=== PATIENT | female | born 1945 | race Caucasian/White ===

== ENCOUNTER → 2022-05-20 14:02 | Outpatient (BNVA) | payer MEDICARE, SELFPAY | PROVIDERS: PCP Internal Medicine; Visit Provider Internal Medicine | DX: R76.8 Other specified abnormal immunological findings in serum (principal) | CPT/HCPCS: 99202 ==

== ENCOUNTER 2024-09-07 13:15 | Emergency (ER) | payer MEDICARE, SELFPAY ==
[2024-09-07] VITALS (9 sets, daily range): BP systolic 169–224; BP diastolic 24–92; PULSE 61–79; RESP 14–16; TEMP 36.4–37.1; O2SAT 94–98; BMI 28.3
--- NOTE | ~2024-09-07 | CT_ITS ---
EXAMINATION: CT CHEST WITHOUT CONTRAST CLINICAL INFORMATION: Assess for possible aneurysm COMPARISON: Same-day radiograph TECHNIQUE: Multidetector volumetric CT imaging of the chest was done. Axial MIP volume rendering provided. Sagittal and coronal reformatted images were obtained. This CT examination was performed using dose optimization techniques as appropriate, variously including the following: *Automated exposure control *Adjustment of mA and/or kV according to patient size (this includes techniques or standardized protocols for targeted exams where dose is matched to indication/reason for exam; i.e. extremities or head) *Use of iterative reconstruction technique DLP: 185 mGy-cm FINDINGS: HYDROGEOLOGIST: Similar LUNGS: Minor subcutaneous pleural scarring both apices posteriorly especially. 4 mm area of increased density is not mass like left upper lobe. Please see posadas images. When compared to patient's older CT scan dated 02/01/2020, this appears similar. Other cysts small nodular foci favoring scarring similar. No new findings grossly. MEDIASTINUM: The ascending thoracic aorta measures up to 4.1 cm. Generalized atherosclerosis. And correlated to patient's baseline study, this is progressive. CORONARY ARTERY CALCIFICATION: Present PLEURA: There is no pleural effusion. No pleural mass or thickening. AXILLA: No lymphadenopathy. UPPER ABDOMEN: Parapelvic cysts suspected left kidney partially imaged. OSSEOUS STRUCTURES: Unremarkable. CT/CT chest wo IV con IMPRESSION: 4.1 cm descending thoracic aortic aneurysm . Follow-up recommended. Stable pulmonary findings favoring scarring. Fleischner guidelines were followed. Electronically signed by: Ambrosio Rodriguez MD 09/07/2024 07:00 PM [facility]
--- NOTE | ~2024-09-07 | CT_ITS ---
EXAMINATION: CT HEAD WITHOUT CONTRAST CLINICAL INFORMATION: JUAN, HTN COMPARISON: CT dated April 17, 2018. TECHNIQUE: Contiguous axial imaging was performed from the skull base to vertex without intravenous administration of contrast. This CT examination was performed using dose optimization techniques as appropriate, variously including the following: *Automated exposure control *Adjustment of mA and/or kV according to patient size (this includes techniques or standardized protocols for targeted exams where dose is matched to indication/reason for exam; i.e. extremities or head) *Use of iterative reconstruction technique DLP: 633 mGy-cm FINDINGS: Prominence of the extra-axial CSF spaces along the frontal parietal convexities suggesting volume loss. No acute intracranial hemorrhage, mass effect, midline shift, hydrocephalus or herniation. Old lacunar infarcts in the basal ganglia the most conspicuous in the left thalamus. Grade 1 matter differentiation is normal. Posterior cranial fossa contents demonstrated no acute hemorrhage or gross mass effect. Sellar/suprasellar region demonstrated no gross masses. Calcified plaques in the cavernous segments both ICA. Mucosal thickening, ethmoid air cells and maxillary sinuses without air-fluid levels. Tympanic cavities and mastoid air cells are aerated. High riding right internal jugular bulb. CT/CT head/brain wo IV con IMPRESSION: No acute intracranial hemorrhage. Small vessel occlusive disease. Electronically signed by: Thanh Baca MD 09/07/2024 03:36 PM EST
--- NOTE | ~2024-09-07 | XR_ITS ---
EXAMINATION: XR CHEST CLINICAL INFORMATION: sob COMPARISON: None available. TECHNIQUE: 2 views of the chest were obtained. FINDINGS: The cardiac, hilar, and mediastinal contours demonstrate the aorta is mildly uncoiled and calcified. Prominence of the aortic root. The lungs are somewhat hyperaerated, however clear bilaterally. Minor apical pleural thickening right greater than left. Minor thickening of the bronchi noted. There is no pneumothorax or pleural effusion. There is no focal osseous or soft tissue abnormality. S-shaped scoliosis of the thoracolumbar spine. XR/XR chest 2V IMPRESSION: 1. No consolidation or effusion. 2. Minor thickening of the airways suggesting bronchitis. 3. COPD, unchanged. 4. Prominence of the ascending aorta noted, cannot exclude aneurysm. Electronically signed by: Klaus Anderson MD 09/07/2024 02:50 PM [facility]
--- NOTE | 2024-09-07 13:26 | ED_ITS ---
HPI - General Adult General Chief complaint: General Medical Stated complaint: Pt new med pos allergic reaction per ems Time Seen by Provider: 09/07/24 13:24 Source: patient, EMS, RN notes reviewed and old records reviewed Mode of arrival: EMS History of Present Illness ED Provider: Priscilla Marie PA-C HPI narrative: 79-year-old female with a past medical history of HLD, hypothyroid, HTN, migraines, ovarian and endometrial CA, presenting to the ED via EMS complaining of headache, chest tightness, SOB, body squeezing sensation and throat tightening 1 hour after taking Doxycycline. Admits saw PCP on Wednesday and was prescribed Doxycycline for sinusitis, states has taken Doxycycline in the past without adverse reaction. Denies other new exposures or medications. Denies fever, chills, cough, abdominal pain, nausea/vomiting. Related Data Home Medications ?Medication ?Instructions ?Recorded ?Confirmed levothyroxine 50 mcg capsule 50 mcg PO DAILY 05/20/22 loratadine 10 mg tablet 10 mg PO DAILY 05/20/22 metoprolol succinate 25 mg 12.5 mg PO DAILY 05/20/22 tablet,extended release 24 hr Previous Rx's ?Medication ?Instructions ?Recorded azithromycin 250 mg tablet See Rx Instructions PO .COMPLEX #6 09/07/24 tabs Allergies Allergy/AdvReac Type Severity Reaction Status Date / Time butalbital [From FIORICET] Allergy Intermediate UNKNOWN Verified 09/07/24 13:32 tetracaine [TETRACAINE] Allergy Intermediate UNKNOWN Verified 09/07/24 13:32 nortriptyline [NORTRIPTYLINE] Allergy Mild BURNING Verified 09/07/24 13:32 SENSATION atorvastatin Allergy Unknown Unknown Verified 09/07/24 13:32 bupivacaine Allergy Unknown Unknown Verified 09/07/24 13:32 cefazolin [CEFAZOLIN] Allergy Unknown HIVES Verified 09/07/24 13:32 ezetimibe [From ZETIA] Allergy Unknown HEADACHES Verified 09/07/24 13:32 hydralazine Allergy Unknown Unknown Verified 09/07/24 13:32 lidocaine [LIDOCAINE] Allergy Unknown RASH Verified 09/07/24 13:32 lisinopril [LISINOPRIL] Allergy Unknown ANGIOEDEMA Verified 09/07/24 13:32 mepivacaine [From CARBOCAINE] Allergy Unknown RASH AND Verified 09/07/24 13:32 BLEEDING UNDER THE SKIN Sulfa (Sulfonamide Allergy Unknown Unknown Verified 09/07/24 13:32 Antibiotics) sulfamethoxazole Allergy Unknown RASH Verified 09/07/24 13:32 [From BACTRIM] trimethoprim [From BACTRIM] Allergy Unknown RASH Verified 09/07/24 13:32 Cefzil Allergy Unknown Unknown Uncoded 05/20/22 14:10 Tetracaine Allergy Unknown Unknown Uncoded 05/20/22 14:10 Review of Systems 2 Review of Systems: Yes all other systems are reviewed and are negative Constitutional: Constitutional: Reports as per HPI Neurologic: Denies Abnormal speech present [facility] Past Medical History Attestation statement: The following information was validated with the patient. Source: old records reviewed Medical History Positive Lyme disease serology Hypercholesterolemia Hypothyroid Allergies Hypertension H/O ovarian cancer H/O malignant neoplasm of endometrium Migraine Surgical History H/O sinus surgery H/O vein stripping Social History Social History Smoked in Last 30 Days: No Use of substances other than those prescribed or required for medical reasons: No Advance Directives: No Advance Directives Information Provided: Yes Physical Exam ED Vital Signs: Vital Signs - 24 hr 09/07/24 13:29 09/07/24 13:37 09/07/24 15:28 Temperature 97.6 F Pulse Rate 78 73 69 Respiratory Rate 16 Blood Pressure 224/81 H 211/92 H 188/24 H Pulse Oximetry 97 98 94 Oxygen Delivery Method Room Air Room Air 09/07/24 15:29 09/07/24 15:29 09/07/24 15:30 Temperature Pulse Rate 63 66 65 Respiratory Rate Blood Pressure 178/78 H 182/76 H 183/76 H Pulse Oximetry 95 94 94 Oxygen Delivery Method Room Air Room Air Room Air 09/07/24 15:30 09/07/24 15:50 09/07/24 18:02 Temperature Pulse Rate 65 61 70 Respiratory Rate 14 16 Blood Pressure 188/74 H 169/69 H 180/73 H Pulse Oximetry 95 95 96 Oxygen Delivery Method Room Air Room Air Room Air 09/07/24 19:49 Temperature 98.7 F Pulse Rate 70 Respiratory Rate 16 Blood Pressure 180/73 H Pulse Oximetry 96 Oxygen Delivery Method Room Air BMI result Body Mass Index 28.3 Const General: cooperative, healthy appearing and no acute distress Orientation/consciousness: patient oriented x3 Limitations: no limitations HENMT Head: Yes normal to inspection and Yes atraumatic Ears: hearing grossly normal bilaterally General nose exam: Normal external nose present Face and sinus: Yes normal facial exam Mouth: Normal oral and palatal mucosa present and no drooling Throat: Yes posterior oropharynx normal, Yes uvula midline, No peritonsillar mass, No uvula laterally displaced and No uvular edema Eyes General: appearance normal, both eyes and all related structures Pupils: Equal, round and reactive pupils present EOM: EOMs intact bilaterally Neck Neck: Yes normal visual inspection and Yes no meningeal signs Resp Effort & Inspection: normal respiratory effort and no respiratory distress Auscultation: clear to auscultation bilaterally and no wheezes Cardio Rate: regular rate Heart sounds: S1 normal heart sound present and S2 normal heart sound present GI Inspection: Yes normal to inspection Palpation (GI): Soft to palpation, nontender, no guarding and not rigid General: Yes no CVA tenderness Back/Spine/Pelvis Back: no CVA tenderness Skin Rashes: no rashes Wounds: no wounds Neuro General: patient oriented x3, gait normal, tone normal, moves all extremities, no meningeal signs, no focal motor deficits and CN's II-XI intact bilaterally Cranial nerves: Yes CN's II-XII intact bilaterally, Yes Equal, round and reactive pupils present and Yes Bilaterally intact EOM present Cognition (Neuro): normal cognition Speech: No Abnormal speech present Motor exam (neuro): 5/5 motor strength present throughout and no tremor noted Extrem General: Yes normal to inspection Course Course Course Narrative: -1536--no leukocytosis. Labs otherwise reassuring. Initial troponin negative -viral studies negative XR chest 2V IMPRESSION: 1. No consolidation or effusion. 2. Minor thickening of the airways suggesting bronchitis. 3. COPD, unchanged. 4. Prominence of the ascending aorta noted, cannot exclude aneurysm. > will obtain chest CT for further eval >> patient allergic to contrast, refusing contrast & pre-treatment > will obtain CT dry -155-- blood pressure improving 169/69 after medications given in the ED CT head/brain wo IV con IMPRESSION: No acute intracranial hemorrhage. Small vessel occlusive disease. -190--CT chest wo IV con IMPRESSION: 4.1 cm descending thoracic aortic aneurysm. Follow-up recommended. Stable pulmonary findings favoring scarring. Fleischner guidelines were followed. -Results discussed with patient including recommended follow up with vascular & PCP -recommend patient stop taking previously prescribed doxycycline as possible adverse reaction from to the ED visit today > will switch to Azithromycin > Results discussed with patient including worrisome signs and symptoms and strict return precautions, and when to return to the emergency department. They verbalized understanding and feel safe for discharge at this time. Medications Administered Discontinued Medications Generic Name Dose Route Start Last Admin Trade Name Camelia PRN Reason Stop Dose Admin Acetaminophen 650 mg 09/07/24 13:42 09/07/24 13:57 Acetaminophen 325 Mg Tablet PO 09/07/24 13:43 650 mg ONCE ONE Administration Diphenhydramine HCl 25 mg 09/07/24 13:40 09/07/24 13:56 Diphenhydramine Hcl 50 Mg/Ml Vial IVPUSH 09/07/24 13:41 25 mg ONCE ONE Administration Labetalol HCl 5 mg 09/07/24 13:46 09/07/24 13:57 Labetalol Hcl 100 Mg/20 Ml Vial IVPUSH 09/07/24 13:47 5 mg ONCE ONE Administration Medical Decision Making Medical Decision Making [facility] Narrative: 79-year-old female with a past medical history of HLD, hypothyroid, HTN, migraines, ovarian and endometrial CA, presenting to the ED via EMS complaining of headache, chest tightness, SOB, body squeezing sensation and throat tightening 1 hour after taking Doxycycline. On exam hypertensive 224/81, NAD, nontoxic appearing, mildly anxious, lungs CTA, talking in complete sentences, no focal neuro deficits. Concern for medication adverse reaction vs allergic reaction vs anxiety vs ACS vs migraine headache vs hypertensive urgency/emergency vs ?ICH. Low suspicion for SAH, meningitis or encephalitis. Lower suspicion for dissection Plan: EKG, labs, CXR, head CT, IV Benadryl, Tylenol, labetalol, re-evaluate Please refer to course for remaining clinical decision making, interpretation of labs/imaging results, and discussions with consultants and/or family members. Differential Diagnosis Differential Diagnoses: The differential diagnosis associated with the presentation includes As above Admission/Observation Consideration of admission/observation: Escalation of care including admission/observation considered Lab Data [facility] Lab Attestation statement: I reviewed the patient's lab results. 09/07/24 13:42 09/07/24 13:42 Labs: Lab Results 09/07/24 09/07/24 09/07/24 Range/Units 13:42 13:43 13:53 WBC 7.3 (4.8-10.8) X10*3/uL RBC 4.70 (4.20-5.50) X10*6/uL Hgb 14.1 (12.0-16.0) g/dl Hct 42.1 (37.0-47.0) % MCV 89.6 (80.0-98.0) fL MCH 30.0 (27.0-33.0) pg MCHC 33.5 (31.0-35.0) g/dl RDW 12.5 (11.0-16.0) % Plt Count 232 (160-400) X10*3/uL MPV 8.8 L (9.4-12.3) fL Absolute Nucleated RBC 0.000 (0.0-0.012) X10*3/uL Nucleated RBC % (auto) 0.0 (0.0-0.2) /100WBC Neutrophils % (Manual) 61 (45-73) % Band Neutrophils % 0 L (3-5) % Lymphocytes % (Manual) 33 (20-40) % Monocytes % (Manual) 4 (2-11) % Eosinophils % (Manual) 1 (0-4) % Basophils % (Manual) 1 (0-2) % Abs Neuts (Manual) 4.5 (2.0-8.3) X10*3/uL Lymphocytes # (Manual) 2.4 (1.2-4.9) X10*3/uL Monocytes # (Manual) 0.3 (0.1-1.2) X10*3/uL Eosinophils # (Manual) 0.1 (0.0-0.4) X10*3/uL Basophils # (Manual) 0.1 (0.0-0.2) X10*3/uL Platelet Estimate NORMAL (NORMAL) Large Platelets PRESENT Plt Morphology Comment NOTED RBC Morphology NOTED Tear Drop Cells 1+ (0-2) /OIF Ovalocytes 1+ (5-14) /OIF PT 11.3 (10.9-12.4) SEC INR 1.0 (0.9-1.1) Sodium 138 (135-145) mmol/L Potassium 3.6 (3.3-5.1) mmol/L Chloride 105 (96-108) mmol/L Carbon Dioxide 26 (22-29) mmol/L Anion Gap 11 L (12-20) BUN 15 (9-16) mg/dL Creatinine 0.94 (0.5-1.4) mg/dL Estim Creat Clear Calc 45.2 Estimated GFR 58 Random Glucose 100 (60-115) mg/dL Calcium 9.2 (8.4-10.2) mg/dL Magnesium 1.8 (1.6-2.6) mg/dL Total Bilirubin 0.5 (0.0-1.0) mg/dL Direct Bilirubin 0.2 (0.0-0.5) mg/dL AST 30 (5-31) U/L ALT 24 (0-31) U/L Alkaline Phosphatase 63 (39-117) U/L Total Creatine Kinase 125 (26-140) U/L Troponin I High Sens < 2.7 (<3.5-17.0) ng/L Total Protein 7.1 (6.5-8.0) g/dL Albumin 4.2 (3.5-5.0) g/dL Influenza Type A (PCR) NEGATIVE (Negative) Influenza Type B (PCR) NEGATIVE (Negative) RSV RNA Qual (PCR) NEGATIVE (Negative) SARS-CoV-2 RNA (RT-PCR) NEGATIVE (Negative) 09/07/24 Range/Units 16:59 WBC (4.8-10.8) X10*3/uL RBC (4.20-5.50) X10*6/uL Hgb (12.0-16.0) g/dl Hct (37.0-47.0) % MCV (80.0-98.0) fL MCH (27.0-33.0) pg MCHC (31.0-35.0) g/dl RDW (11.0-16.0) % Plt Count (160-400) X10*3/uL MPV (9.4-12.3) fL Absolute Nucleated RBC (0.0-0.012) X10*3/uL Nucleated RBC % (auto) (0.0-0.2) /100WBC Neutrophils % (Manual) (45-73) % Band Neutrophils % (3-5) % Lymphocytes % (Manual) (20-40) % Monocytes % (Manual) (2-11) % Eosinophils % (Manual) (0-4) % Basophils % (Manual) (0-2) % Abs Neuts (Manual) (2.0-8.3) X10*3/uL Lymphocytes # (Manual) (1.2-4.9) X10*3/uL Monocytes # (Manual) (0.1-1.2) X10*3/uL Eosinophils # (Manual) (0.0-0.4) X10*3/uL Basophils # (Manual) (0.0-0.2) X10*3/uL Platelet Estimate (NORMAL) Large Platelets Plt Morphology Comment RBC Morphology Tear Drop Cells /OIF Ovalocytes /OIF PT (10.9-12.4) SEC INR (0.9-1.1) Sodium (135-145) mmol/L Potassium (3.3-5.1) mmol/L Chloride (96-108) mmol/L Carbon Dioxide (22-29) mmol/L Anion Gap (12-20) BUN (9-16) mg/dL Creatinine (0.5-1.4) mg/dL Estim Creat Clear Calc Estimated GFR Random Glucose (60-115) mg/dL Calcium (8.4-10.2) mg/dL Magnesium (1.6-2.6) mg/dL Total Bilirubin (0.0-1.0) mg/dL Direct Bilirubin (0.0-0.5) mg/dL AST (5-31) U/L ALT (0-31) U/L Alkaline Phosphatase (39-117) U/L Total Creatine Kinase (26-140) U/L Troponin I High Sens < 2.7 (<3.5-17.0) ng/L Total Protein (6.5-8.0) g/dL Albumin (3.5-5.0) g/dL Influenza Type A (PCR) (Negative) Influenza Type B (PCR) (Negative) RSV RNA Qual (PCR) (Negative) SARS-CoV-2 RNA (RT-PCR) (Negative) Independent Interpretation I performed an independent interpretation of an: EKG, Plain X-Ray and CT Scan Radiology Impression Discussion of test interpretation with radiology: I have reviewed the radiologist's reading. Independent Historian Clinical information obtained from an independent historian. History obtained from or confirmed by: EMS External Record Review External record reviewed: Inpatient record, Office record, Outpatient record, Prior outpatient labs, Prior outpatient radiology, Primary care record and Outside ED record Tests considered The following testing was considered but not selected: As above Prescription Management I considered prescription management with: Pain Medication and Antibiotic Chronic Conditions Patient?s care impacted by: Hypertension and Other Social Determinants Patient?s care significantly limited by Social Determinants of Health including: Other Social Determinant of Health Critical Care Time Critical Care Time Critical Care Time: Yes Total Critical Care Time: 40 Attestation: I have personally provided critical care time exclusive of time spent on separately billable procedures. Time includes review of lab data, radiology results, discussion with consultants, and monitoring for potential decompensation. Intervention performed as documented. Discharge Plan Discharge Clinical Impression: Adverse drug reaction, Chest pain, Aortic aneurysm, thoracic Patient Disposition: Home, Self-Care Instructions: Thoracic Aortic Aneurysm (ED), General Allergic Reaction (ED) Additional Instructions: Please stop taking previously prescribed doxycycline and start taking Z-Marcial as prescribed Please call your doctor for close follow-up Your blood work was reassuring today. Your blood pressure was very elevated, we gave you a medication to bring it down. Make sure taking her home prescribed blood pressure medications and monitoring blood pressure closely at home Your CT scan shows a 4.1 cm thoracic aortic aneurysm, please follow up with vascular If you develop headache, chest pain, persistent or worsening symptoms, throat closing sensation, shortness of breath return to the ED immediately Prescriptions: New azithromycin 250 mg tablet See Rx Instructions .ROUTE .COMPLEX Qty: 6 0RF Rx Instructions: take 500 mg today (day 1), then 250 mg for 4 days (days 2-5) No Action metoprolol succinate 25 mg tablet extended release 24 hr 12.5 mg PO DAILY levothyroxine 50 mcg capsule 50 mcg PO DAILY loratadine 10 mg tablet 10 mg PO DAILY Referrals: [facility] Vascular Services [Provider Group] Mando Alcaraz MD [Primary Care Provider] - 1 day Interventions: ED Discharge Assessment Last Done: 09/07/24 19:49 Discharge Date/Time: 09/07/24 19:50 Print Language: [place]
--- NOTE | 2024-09-07 13:33 | ECG_ITS ---
Test Reason : HTN Blood Pressure : / mmHG Vent. Rate : 072 BPM Atrial Rate : 072 BPM P-R Int : 166 ms QRS Dur : 092 ms QT Int : 438 ms P-R-T Axes : 053 020 072 degrees QTc Int : 479 ms Normal sinus rhythm Minimal voltage criteria for LVH, may be normal variant ( Sokolow-Woodward ) Borderline ECG When compared with ECG of 22-MAY-2019 08:46, T wave inversion no longer evident in Inferior leads Nonspecific T wave abnormality no longer evident in Anterior leads Referred By: Generic ED Physician Electronically Signed By:STEVEN SNIDER
[2024-09-07 13:55] LABS: Baso%MD 0.5 %; Eos%MD 1.1 %; Hematocrit 42.1 % (37.0-47.0); Hemoglobin 14.1 g/dl (12.0-16.0); IG%MD 0.1 %; Lymph%MD 33.9 %; Mean Corpuscular HGB Conc 33.5 g/dl (31.0-35.0); Mean Corpuscular Volume 89.6 fL (80.0-98.0); Mean Platelet Volume 8.8 fL (9.4-12.3); Mono%MD 8.4 %; Platelet Count 232 X10*3/uL (160-400); Red Cell Distribution Width 12.5 % (11.0-16.0); White Blood Count 7.3 X10*3/uL (4.8-10.8)
[2024-09-07] MEDS: diphenhydrAMINE HCL 50 MG/ML VIAL 25 MG IVPUSH (13:56)
[2024-09-07] MEDS: Labetalol HCL 100 MG/20 ML VIAL IVPUSH (13:57)
[2024-09-07] MEDS: Acetaminophen 325 MG TABLET 650 MG PO (13:57)
--- OUTSIDE RECORDS SUMMARY | 2024-09-07 13:59 | XMS_ITS | Patient Health Record ---
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 Name Role Phone FELTON ANDERSON Primary Care Provider KATHARINE Neff Unavailable [phone] Allergies Allergen (clinical drug ingredient) Drug/Non Drug Allergy documented on EMR Reaction Allergy Type Onset Date Status amlodipine / atorvastatin Amlodipine-Hugh rvasta tin Unknown Drug Allergy Active sulfamethoxazole / trimethoprim Bactrim Unknown Drug Allergy Active Carbocaine Unknown Drug Allergy Active Cefzil Unknown Drug Allergy Active celecoxib Celebrex Unknown Drug Allergy Active ciprofloxacin Cipro Unknown Drug Allergy Act maria isabel clindamycin Cleocin Unknown Drug Allergy Activ e lidocaine Lidocaine Unknown Drug Allergy Active lisinopril Lisinopril Unknown Drug Allergy Activ e minocycline Minocycline HCl Unknown Drug Allergy Active atorvastatin atorvastatin Unknown Drug Allergy A ctive Reason For Referral No Information Medications Medication SIG (Take, Route, Frequency, Duration) Notes Start Date End Date Status Metoprolol Tartrate 25 MG 2 tablets am, 1 tablet pm Orally Twice a day Active Maxalt 10 MG 1 tablet as needed one time Orally Once a day 30mg tablet Active LORazepam 0.5 MG 1 tablet as needed Orally every 6 hrs Active Loratadine 10 MG 1 tablet Orally Once a day Active Fluticasone Propionate 50 MCG/ACT 1 spray in each nostril Nasally Once a day Active Levothyroxine Sodium 50 MCG 1 tablet on an empty stomach in the morning Orally Once a day Active Social History Tobacco Use: Social History Observation Description Date Details (start date - stop date) Never Smoker NA - NA Tobacco Use/Smoking Question Answer Notes Are you a nonsmoker Section Notes: 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 Occasional ETOH. Lives at home with . 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 Problem Hypothyroidism (06149646) Hypothyroidism (E03.9) Active confirmed Problem Hypercholesterolemia (11142819) Hypercholesterolemia (E78.00) Active confirmed Plan Of Treatment No Information Insurance Providers Payer Name Payer Address Payer Phone Subscriber Number Group Number Insured Name Patient Relationship to Insured Coverage Start Date Coverage End Date MEDICARE [address] [place] [id number] [phone] [id number] Mai Antoine Self - patient is the insured MEDEX [address] [place] [address] [phone] [id number] Mai Antoine Self - patient is the insured Medical (General) History Medical History History ICD Code Hypercholesterolemia Hypertension Hypothyroidism Anxiety ovarian/endometrial cancer s/p chemother apy Surgical History Surgery Date(Month/Year) Colonoscopy Tubular Adenoma Ovarian Cancer (total hysterectomy) Hospitalization History Reason Date(Month/Year) Surgery related
[2024-09-07 14:01] LABS: Prothrombin Time 11.3 SEC (10.9-12.4)
[2024-09-07 14:05] LABS: Alanine Aminotransferase 24 U/L (0-31); Albumin Level 4.2 g/dL (3.5-5.0); Alkaline Phosphatase 63 U/L (39-117); Anion Gap 11 (12-20); Aspartate Amino Transferase 30 U/L (5-31); Bilirubin Direct 0.2 mg/dL (0.0-0.5); Bilirubin Total 0.5 mg/dL (0.0-1.0); Blood Urea Nitrogen 15 mg/dL (9-16); Calcium 9.2 mg/dL (8.4-10.2); Carbon Dioxide 26 mmol/L (22-29); Chloride 105 mmol/L (96-108); Creatinine Clr Calc Pharmacy 45.2; Estimated Glomerular Filt Rate 58; Glucose Random 100 mg/dL (60-115); Magnesium 1.8 mg/dL (1.6-2.6); Potassium 3.6 mmol/L (3.3-5.1); Sodium 138 mmol/L (135-145); Total Protein 7.1 g/dL (6.5-8.0)
[2024-09-07 14:13] LABS: Troponin-I High Sensitivity < 2.7 ng/L (<3.5-17.0)
--- NOTE | 2024-09-07 14:13 | PC.NURSE ---
20G iv in place in R-AC- pt medicated per NOV-pt taken to CT scan
[2024-09-07 14:23] LABS: Band Neutrophils Percent 0 % (3-5); Basophils Abs Manual 0.1 X10*3/uL (0.0-0.2); Basophils Percent Manual 1 % (0-2); Eosinophils Absolute Manual 0.1 X10*3/uL (0.0-0.4); Eosinophils Percent Manual 1 % (0-4); Large Platelet PRESENT; Lymphocytes Absolute Manual 2.4 X10*3/uL (1.2-4.9); Lymphocytes Percent Manual 33 % (20-40); Monocytes Absolute Manual 0.3 X10*3/uL (0.1-1.2); Monocytes Percent Manual 4 % (2-11); Neutrophils Absolute Manual 4.5 X10*3/uL (2.0-8.3); Neutrophils Percent Manual 61 % (45-73); Platelet Estimate NORMAL (NORMAL); Platelet Morphology Comment NOTED; RBC Morphology NOTED
[2024-09-07 14:24] LABS: Ovalocytes 1+ (5-14) /OIF; Tear Drop Cells 1+ (0-2) /OIF
[2024-09-07 14:39] LABS: Influenza A PCR NEGATIVE (Negative); Influenza B PCR NEGATIVE (Negative); Resp Syncy Virus RNA Qual PCR NEGATIVE (Negative); SARS COV2 PCR INHOUSE NEGATIVE (Negative)
[2024-09-07 17:28] LABS: Troponin-I High Sensitivity < 2.7 ng/L (<3.5-17.0)
== END 2024-09-07 19:50 | disposition home or self-care (01) ==
PROVIDERS: Physician Assistant; Emergency Provider Emergency Medicine Emergency Medical Services; PCP Internal Medicine
DX: R07.9 Chest pain, unspecified (principal); T36.4X5A Adverse effect of tetracyclines, initial encounter; Y92.9 Unspecified place or not applicable; I71.20 Thoracic aortic aneurysm, without rupture, unspecified; R06.02 Shortness of breath; R51.9 Headache, unspecified; Z03.818 Encounter for observation for suspected exposure to other biological agents ruled out; I10 Essential (primary) hypertension; E78.00 Pure hypercholesterolemia, unspecified; E03.9 Hypothyroidism, unspecified; J44.9 Chronic obstructive pulmonary disease, unspecified; Z79.899 Other long term (current) drug therapy
CPT/HCPCS: 0241U; 36415; 70450; 71046; 71250; 80048; 80076; 82550; 83735; 84484; 85007; 85027; 85610; 93005; 96374; 96375; 99284; 99285; J1200; J1920

== ENCOUNTER → 2024-09-07 13:33 | Outpatient (BNV) | payer MEDICARE, SELFPAY | PROVIDERS: Emergency Provider Emergency Medicine Emergency Medical Services; PCP Internal Medicine; Visit Provider Internal Medicine | DX: I10 Essential (primary) hypertension (principal); R94.31 Abnormal electrocardiogram [ECG] [EKG] | CPT/HCPCS: 93010 ==

== ENCOUNTER → 2024-09-07 13:41 | Outpatient (BNV) | payer MEDICARE, SELFPAY | PROVIDERS: Emergency Provider Emergency Medicine Emergency Medical Services; PCP Internal Medicine; Visit Provider Radiology Diagnostic Radiology | DX: I67.89 Other cerebrovascular disease (principal); J44.9 Chronic obstructive pulmonary disease, unspecified | CPT/HCPCS: 70450; 71046 ==